=== PATIENT | male | born 1995 ===

== ENCOUNTER 2017-12-12 14:51 | Emergency (ER) | payer SELFPAY ==
[2017-12-12 15:16] VITALS: BP 101/71
--- NOTE | 2017-12-12 15:31 | UC ---
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 " Pt rturns for suture removal from right middle finger; sutures were placed here 12/02/17" -has healed well, no streaks, no d/c, no puss, no erythema, no fevers -completed keflex - History Of Current Complaint Chief Complaint: [employer] Stated Complaint: WC-STITCH REMOVAL Time Seen by Provider: 12/12/17 15:30 Pain Intensity: 0 - Allergies/Home Medications Allergies/Adverse Reactions: Allergies Allergy/AdvReac Type Severity Reaction Status Date / Time No Known Allergies Allergy Verified 12/02/17 16:01 PMH/Surg Hx/FS Hx/Imm Hx - Surgical History Surgical History: Yes Surgery Procedure, Year, and Place: LEFT ELBOW ORIF - Social History Alcohol Use: None Substance Use Type: None Smoking Status (MU): Never Smoked Tobacco - Immunization History Most Recent Tetanus Shot: UTD Review of Systems Constitutional: Negative Skin: Negative Eyes: Negative ENT: Negative Respiratory: Negative Cardiovascular: Negative Gastrointestinal: Negative Genitourinary: Negative Motor: Negative Neurovascular: Negative Musculoskeletal: Negative Neurological: Negative Psychological: Negative Is Patient Immunocompromised?: No All Other Systems Reviewed And Are Negative: Yes Physical Exam Triage Information Reviewed: Yes Appearance: Well-Appearing, No Pain Distress Vital Signs: Initial Vital Signs Temp 98.8 F 12/12/17 15:10 Pulse 92 12/12/17 15:10 Resp 16 12/12/17 15:10 BP 101/71 12/12/17 15:10 Pulse Ox 96 12/12/17 15:10 Respiratory Exam: Normal Cardiovascular Exam: Normal Cardiovascular: Positive: RRR Skin: Positive: Other - 3rd right digit. well healing scar. 5 sutures are intact and removed. nice scab tissue has formed. no streaks, no d/c. no purulence. FROM. no bleeding. Course/Dx - Differential Dx - Laceration/Wound Provider Diagnoses: suture removal Discharge - Sign-Out/Discharge Documenting (check all that apply): Discharge - Discharge Plan Condition: Stable Disposition: HOME Patient Education Materials: Stitches Removal (ED) Referrals: Non Staff,Doctor [Primary Care Provider] - Additional Instructions: Follow up if needed with any signs of infections, discharge, fevers or streaking. - Billing Disposition and Condition Condition: STABLE Disposition: HOME
== END 2017-12-12 15:44 | disposition home or self-care (01) ==
LOC: UCCORT 14:51
DX: S61.212D Laceration without foreign body of right middle finger without damage to nail, subsequent encounter (principal); X58.XXXD Exposure to other specified factors, subsequent encounter; Y92.9 Unspecified place or not applicable